=== PATIENT | female | born 1950 | race Caucasian/White ===

== ENCOUNTER → 2016-08-25 08:51 | Outpatient (CLI) | payer MEDICARE, OTHER ==
[2015-12-30 14:03] VITALS: BMI 19.1
[~2016-08-25 08:51] MED LIST: CALAN120 MG PO; CYCLOBENZAPRINE10 MG PO; ELAVIL75 MG; ZOLOFT100 MG PO
== END | disposition home or self-care (01) ==
LOC: D.US 08:51
DX: R10.11 Right upper quadrant pain (principal)

== ENCOUNTER → 2017-05-26 16:05 | Outpatient (CLI) | payer MEDICARE, OTHER ==
[2015-12-30 14:03] VITALS: BMI 19.1
== END | disposition home or self-care (01) ==
LOC: D.MAMMO 13:45
DX: Z12.31 Encounter for screening mammogram for malignant neoplasm of breast (principal)

== ENCOUNTER → 2017-06-08 14:05 | Outpatient (CLI) | payer MEDICARE, OTHER ==
[2017-06-08 14:52] VITALS: BP 134/69; Ht 152.4 cm
== END | disposition home or self-care (01) ==
LOC: D.OPS 13:00
DX: M81.0 Age-related osteoporosis without current pathological fracture (principal)

== ENCOUNTER 2018-08-09 13:06 | Outpatient (CLI) | payer MEDICARE, BC ==
[~2018-08-09] VITALS: Ht 149.9 cm; Wt 40.9 kg
[2018-08-09 13:58] VITALS: BP 130/76; Ht 149.9 cm; Wt 40.9 kg
== END 2018-08-09 14:20 ==
LOC: D.OPS 13:06
PROVIDERS: ATTEND Family Medicine Adult Medicine
DX: M80.00XA Age-related osteoporosis with current pathological fracture, unspecified site, initial encounter for fracture (principal)

== ENCOUNTER 2019-04-17 12:51 | Outpatient (CLI) | payer MEDICARE, BC ==
[~2019-04-17] VITALS: Ht 149.9 cm; Wt 40.9 kg
[2019-04-17 13:27] VITALS: BP 131/79; Ht 149.9 cm; Wt 40.9 kg
[2019-04-17] MEDS ORDERED: [UNRECOGNIZED DRUG - OTHER] (13:34)
[2019-04-17] MEDS ORDERED: AUBAGIO14 MG PO (13:34)
== END 2019-04-17 13:37 | disposition home or self-care (01) ==
LOC: D.OPS 12:51
PROVIDERS: ATTEND Nurse Practitioner Family
DX: M81.0 Age-related osteoporosis without current pathological fracture (principal)

== ENCOUNTER → 2020-12-03 23:42 | Outpatient (CLI) | payer MEDICARE, BC ==
[2019-04-17 13:27] VITALS: BMI 18.2
[~2020-12-03 23:42] MED LIST changes: +AUBAGIO14 MG PO; +[UNRECOGNIZED DRUG - OTHER]
== END | disposition home or self-care (01) ==
LOC: D.MAMMO 15:15
PROVIDERS: ATTEND Nurse Practitioner Family
DX: Z12.31 Encounter for screening mammogram for malignant neoplasm of breast (principal)